=== PATIENT | male | born 1960 | race Caucasian/White ===

== ENCOUNTER 2017-03-14 05:21 | Inpatient (IN) | payer BC ==
[2017-03-14] MEDS ORDERED: LACTATED RINGER'S 1,000 ML IV* (06:00)
[2017-03-14] MEDS ORDERED: BUPIVACAINE 0.25% (MPF) 30 ML INJ (06:59)
[2017-03-14] MEDS ORDERED: DEXAMETHASONE 4 MG/ML 1 ML INJ (07:02)
[2017-03-14] MEDS ORDERED: MIDAZOLAM 1 MG/ML 2 ML INJ (07:02)
[2017-03-14] MEDS ORDERED: GLYCOPYRROLATE 0.4 MG INJ (07:02)
[2017-03-14] MEDS ORDERED: PROPOFOL 20 ML (07:02)
[2017-03-14] MEDS ORDERED: ROCURONIUM 50 MG INJ (07:02)
[2017-03-14] MEDS ORDERED: CEFAZOLIN 1 GM INJ (07:02)
[2017-03-14] MEDS ORDERED: ONDANSETRON 4 MG INJ (07:02)
[2017-03-14] MEDS ORDERED: NEOSTIGMINE 3 MG/3 ML SYRINGE (07:02)
[2017-03-14] MEDS ORDERED: EPHEDrine SULFATE 50 MG/5 ML SYG IV (08:00)
[2017-03-14] MEDS ORDERED: DIPHENHYDRAMINE 50 MG INJ IV ×2 (08:00→10:00)
[2017-03-14] MEDS ORDERED: ALBUTEROL 0.083% (NEB) 2.5 MG/3 ML AMP HHN (08:00)
[2017-03-14] MEDS ORDERED: IPRATROPIUM (NEB) 0.5 MG/2.5 ML AMP HHN (08:00)
[2017-03-14] MEDS ORDERED: MIDAZOLAM 1 MG/ML 2 ML INJ IV (08:00)
[2017-03-14] MEDS ORDERED: HYDROmorphONE (0.2 MG/ML) 10ML SYG IV ×3 (08:00)
[2017-03-14] MEDS ORDERED: OXYCODONE/ACETAMINOPHEN (5/325) TAB PO ×2 (08:00)
[2017-03-14] MEDS ORDERED: TRIMETHOBENZAMIDE 100 MG/ML VIAL IM (08:00)
[2017-03-14] MEDS ORDERED: FENTAnyl 50 MCG/ML VIAL IV ×3 (08:00)
[2017-03-14] MEDS ORDERED: ONDANSETRON 4 MG INJ IV (08:00)
[2017-03-14] MEDS: SURGIFOAM POWDER 1 GM KIT (09:18)
[2017-03-14] MEDS: THROMBIN 5000 UNIT VIAL (09:18)
[2017-03-14] MEDS: CA CHLORIDE 10% 10 ML SYRINGE (09:18)
[2017-03-14] MEDS: POLYMYXIN/BACITRACIN 1L IRRIG (09:18)
[2017-03-14] MEDS: BUPIVACAINE 0.5%/EPI (SDV) 30 ML INJ (09:18)
[2017-03-14] MEDS: FENTAnyl 50 MCG/ML VIAL (09:18)
[2017-03-14] MEDS ORDERED: SUGAMMADEX SODIUM 200 MG/2 ML VIAL IV (09:20)
[2017-03-14] MEDS: HYDROmorphONE 0.2 MG/ML PCA IV (09:41)
[2017-03-14] MEDS: LABETALOL HCL 20MG INJ IV ×2 (09:55→14:11)
[2017-03-14] MEDS: DOCUSATE SODIUM 100 MG CAP PO (09:56)
[2017-03-14] MEDS: MEPERIDINE 25 MG INJ IV (09:56)
[2017-03-14] MEDS: ONDANSETRON 4 MG INJ IV (09:56)
[2017-03-14] MEDS: CEFAZOLIN 2 GM/50 ML (PMX) 50 ML IVPB (09:57)
[2017-03-14] MEDS: CEFAZOLIN 1 GM/50 ML (PMX) 50 ML IVPB ×2 (09:57→11:17)
[2017-03-14] MEDS ORDERED: AL HYDROX/MG HYDROX/SIMETH 30 ML CUP PO (10:00)
[2017-03-14] MEDS ORDERED: HYDROmorphONE 0.5 MG/0.5 ML SYG IV (10:00)
[2017-03-14] MEDS ORDERED: ACETAMINOPHEN 325 MG TAB PO (10:00)
[2017-03-14] MEDS ORDERED: ZOLPIDEM 5 MG TAB PO (10:00)
[2017-03-14] MEDS ORDERED: NALOXONE (0.4 MG/ML) INJ IV (10:00)
[2017-03-14] MEDS ORDERED: CEPASTAT LOZENGE MT (10:00)
[2017-03-14] MEDS ORDERED: CYCLOBENZAPRINE 10 MG TAB PO (10:00)
[2017-03-14] MEDS ORDERED: BISACODYL 10 MG SUPP PR (10:00)
[2017-03-14] MEDS: D5W-0.45 NACL + KCL 20 MEQ 1,000 ML IV (11:08)
[2017-03-14] MEDS: hydrALAzine 20 MG INJ IV (14:33)
[2017-03-15] MEDS ORDERED: HYDROCODONE/APAP (10/325) TAB PO ×3 (09:30→10:00)
== END 2017-03-14 15:54 | disposition home or self-care (01) | DRG 520 ==
LOC: REC 05:21
PROC: 0SB20ZZ Excision of Lumbar Vertebral Disc, Open Approach (ICD-10-PCS; principal; 2017-03-14 07:00)
PROC: 01NB0ZZ Release Lumbar Nerve, Open Approach (ICD-10-PCS; 2017-03-14 07:00)
PROC: 4A11X4G Monitoring of Peripheral Nervous Electrical Activity, Intraoperative, External Approach (ICD-10-PCS; 2017-03-14 07:00)
DX: M48.061 Spinal stenosis, lumbar region without neurogenic claudication (principal); M54.17 Radiculopathy, lumbosacral region; M48.07 Spinal stenosis, lumbosacral region; R03.0 Elevated blood-pressure reading, without diagnosis of hypertension
CPT/HCPCS: 72020; 86999; 97162